=== PATIENT | male | born 1950 | race Caucasian/White ===

== ENCOUNTER 2023-02-26 11:57 | Day surgery (SDC) | payer OTHER ==
[2023-02-23 14:39] LABS: Potassium 4.5 mEq/L (3.5-5.1)
[2023-02-26] MEDS ORDERED: PHENYLEPHRINE 10% OPTH 5ML ONE (12:35)
[2023-02-26] MEDS ORDERED: CYCLOPENTOLATE 1% OPTH 2 ML ONE (12:35)
[2023-02-26] MEDS ORDERED: NA CHLORIDE 0.9% 500 ML ONE (12:35)
[2023-02-26] MEDS ORDERED: BSS OPTHALMIC SOL 15 ML OPTH ONE (12:40)
[2023-02-26] MEDS ORDERED: LIDOCAINE 1% MPF 2 ML AMPULE ONE (12:41)
[2023-02-26] MEDS ORDERED: BALANCED SALT IRRIG PLAIN 500 ML IRR ONE (12:41)
[2023-02-26] MEDS ORDERED: LIDOCAINE HCL/PF 3.5% OPTH GEL OPTH ONE (12:52)
--- NOTE | 2023-02-26 17:11 | OP ---
Date of Procedure: 02/26/2023 Surgeon: Vicky Hansen MD Anesthesiologist: Dayana Torres CRNA; and Emy Das M.D. Preoperative Diagnosis: Nuclear sclerotic cataract, left eye Operation Performed: Phacoemulsification with intraocular lens, left eye. Anesthesia: Monitored anesthesia care. Complications: None. Description Of Procedure: In day surgery, the patient was prepped with Betadine and draped. A conju nctival incision was made in the inferior nasal quadrant with Crow scissors. A sub-Tenon block c onsisting of a 1:1 mixture of 2% Xylocaine and 0.25% bupivacaine was placed through the conjunctival incision with a blunt cannula. A [place] balloon was placed over the eye and the patient was transferr ed to the operating room. In the operating room the patient was prepped and draped in the usual sterile fashion for ophthalmic surgery. A lid speculum was placed in the left eye. Two paracentesis sites were made superiorly and inferiorly in the limbal cornea. Viscoat was placed in the anterior chamber and a crescent blade wa s used to make a corneal groove and tunnel, and a keratome was used to enter the anterior chamber. P rovisc was placed in the anterior chamber and a 360 degree capsulotomy was performed with a cystitome . The lens was hydrodissected with BSS and rotated freely. The lens was removed with a stop and cho p technique. 15.20 CDE was used to remove the lens. Residual cortex was removed with the irrigation and aspiration. Provisc was placed in the capsular bag. A DCB00 +20.0 lens was placed in the capsu lar bag without complications. Irrigation and aspiration were used to remove residual viscoelastic. The paracentesis sites were hydrated with BSS. The wound and paracentesis sites were inspected and found to be watertight. Vigamox 0.07 cc was placed intracamerally at the end of the procedure. The eye was irrigated with balanced salt solution. The eye was patched with a soft cotton patch and Gardner metal shield. The patient was returned to day surgery in good condition. Comments: Discharge Instructions: Mr. Drew is discharged to home in good condition to follow up with Dr. Huang in the morning. TIMOTEO/TOÑITO Voice ID: [id number] Report ID: [id number]
[2023-02-27 14:48] VITALS: O2SAT 100
[2023-02-27 14:49] VITALS: BP 150/79; TEMP 97
--- NOTE | 2023-02-28 17:39 | EKG ---
Test Date: 2023-02-23 Test Time: 14:43:26 [place] Operator: JELLY MEASUREMENT RESULTS: Intervals: Rate: 91 DE: 176 QRSD: 158 QT: 480 QTc: 590 [place]: P: 29 DE: 176 QRS: 92 T: -72 INTERPRETIVE STATEMENTS: Demand pacemaker, interpretation is based on intrinsic rhythm Sinus rhythm with frequent premature ventricular complexes with junctional escape complexes Biatrial enlargement Rightward axis Nonspecific intraventricular block Abnormal ECG No previous ECG available for comparison Electronically Signed On 02-28-23 17:26:54 FUSE SPOOLER by Connor Caceres
== END 2023-02-26 14:40 | disposition home or self-care (01) ==
LOC: OR 11:57
PROVIDERS: ADMIT Ophthalmology Retina Specialist; ATTEND Ophthalmology Retina Specialist
PROC: 08RK30Z Replacement of Left Lens with Intraocular Telescope, Percutaneous Approach (ICD-10-PCS; principal; 2023-02-26 13:00)
DX: H25.12 Age-related nuclear cataract, left eye (principal); I10 Essential (primary) hypertension; I49.9 Cardiac arrhythmia, unspecified; Z91.013 Allergy to seafood
CPT/HCPCS: 93005; 80048; 36415; 66984; J7040